=== PATIENT | female | born 1965 | race Caucasian/White ===

== ENCOUNTER → 2024-04-18 10:03 | Outpatient (REF) | payer BC, SELFPAY | LOC: HWRAD 10:03 | PROVIDERS: ATTENDING PHYSICIAN Internal Medicine | DX: R05.1 Acute cough (principal) | CPT/HCPCS: 71046 ==

== ENCOUNTER → 2024-04-27 07:49 | Outpatient (REF) | payer BC, SELFPAY | LOC: HWWDC 07:49 | PROVIDERS: ATTENDING PHYSICIAN Internal Medicine | DX: Z12.31 Encounter for screening mammogram for malignant neoplasm of breast (principal) | CPT/HCPCS: 77063; 77067 ==

== ENCOUNTER 2024-09-01 06:21 | Day surgery (SDC) | payer BC, SELFPAY | END 2024-09-01 14:28 | disposition home or self-care (01) | LOC: GI 06:21 | PROVIDERS: ATTENDING PHYSICIAN Internal Medicine Gastroenterology | DX: Z12.11 Encounter for screening for malignant neoplasm of colon (principal); K63.5 Polyp of colon; K57.30 Diverticulosis of large intestine without perforation or abscess without bleeding; K64.8 Other hemorrhoids; Z86.0100 Personal history of colon polyps, unspecified | CPT/HCPCS: 45385; 88305 ==

== ENCOUNTER 2024-12-03 08:30 | Emergency (ER) | payer BC, SELFPAY ==
[2024-12-03] VITALS (7 sets, daily range): BP systolic 157–182; BP diastolic 92–115; PULSE 59; O2SAT 97
[2024-12-03] MEDS: ANTIVERT 25 MG PO (09:31)
--- NOTE | 2024-12-03 09:41 | ED.GENMED ---
History of Present Illness
General
Chief Complaint: Breathing Problem
Source: patient
Exam Limitations: none
Time Seen by Provider: 12/03/24 09:00
Nursing documentation reviewed up to this point in time: agreed with
History of Present Illness
History of Present Illness:
59 female with past medical history of hypertension presenting to the emergency department today with concerns of room spinning dizziness occasionally over the past week sometimes feels like she has trouble catching her breath denies any specific
chest pain denies any recent trauma surgery immobilization, estrogen product usage. No leg swelling.
Past History
Past History
ED Past Medical History: None
ED Past Surgical History: None
Patient has exhibited threatening behavior?: No
Social History
Tobacco: Smoker
Alcohol: Occasional
Personal:
Living: with family
Employment: Employed
Family History
Family History: Negative Early CAD
Review of Systems
Review of Systems
Allergies reviewed?: Yes
All Other Systems: ROS reviewed and negative except as documented in HPI and ROS
Phy Exam
Physical Exam
Physical Exam:
GENERAL: Alert , in no apparent distress
EYE: pupils equal and reactive
NECK: Supple, no significant adenopathy.
ENT: o/p clr, mmm.
CARDIAC: Regular rate and rhythm .
LUNGS: Clear breath sounds bilaterally, no acute respiratory distress, no wheezes/rales/rhonchi
ABDOMEN: Soft, without focal tenderness, no r/g, no cvat
NEUROLOGICAL: Alert and oriented, no focal neuro deficits
SKIN: Warm and dry, skin intact.
MUSCULOSKELETAL: No edema, well perfused.
PSYCH: Normal and appropriate interaction.
Scores
Heart Failure Risk
Heart Failure Risk Score: Not Applicable
Course
Orders/Labs/Results
Orders:
Orders
12/03/24 08:33
EKG [Electrocardiogram (*1)] Urgent
Reason for Study: Shortness of Breath
EKG- Treatment ONCE
12/03/24 09:23
Meclizine [Antivert] 25 mg PO NOW STA
Pt Eval And Treat Urgent
Treatment: vestibular
Activity Level: Ambulate
12/03/24 09:24
CR Chest - 2 Views Urgent
Comment:
Reason For Exam: sob
12/03/24 09:33
Complete Blood Count/With Diff Urgent
Comprehensive Metabolic Panel Urgent
Magnesium Urgent
TSH Urgent
Troponin I Urgent
Abnormal Lab Results
12/03/24
09:33
Sodium 147 H mmol/L
(135-145)
Chloride 110 H mmol/L
(98-107)
Glucose 101 H mg/dl
(70-99)
ALT 83 H U/L
(0-35)
12/03/24 09:33
12/03/24 09:33
Vital Signs
Initial and Last Documented VS:
Initial Vital Signs
Temp Pulse Resp BP Pulse Ox
98.5 F 78 24 182/102 95
12/03/24 08:32 12/03/24 08:32 12/03/24 08:32 12/03/24 08:32 12/03/24 08:32
Last Documented Vital Signs
Temp Pulse Resp BP Pulse Ox
98.5 F 59 18 161/93 97
12/03/24 08:32 12/03/24 12:00 12/03/24 12:00 12/03/24 12:00 12/03/24 12:00
MDM/Problems Addressed
MDM/Problems Addressed:
59-year-old female presenting to the emergency department today with concerns of occasionally having trouble catching her breath no shortness of breath currently, shakiness and room spinning dizziness occasionally over the past week. Seems to be
worse with movement and changes in positioning. Improves when sitting still. Here blood pressure elevated otherwise vital signs are normal patient no obvious distress lungs are clear heart sounds normal. Here she is mainly concerned of room
spinning dizziness. She was seen by vestibular rehab that was able to reproduce nystagmus with vestibular testing. Symptoms improved with meclizine labs without emergent findings. Troponin negative chest x-ray normal. Blood pressure improving
while here after symptom treatment advised for close outpatient follow-up return precautions given.
*Critical Care Note
Total Time (30-74mins, 75-104mins- exclusive of procedures): Not Applicable
ED Attending Note
-
Portions of this chart may have been created with voice recognition software.� Occasional wrong word or��sound alike� substitutions may have occurred due to the inherent limitations of voice recognition software.
Discharge Plan
Departure
Patient Disposition: Home (Routine Discharge)
Date of Disposition: 12/03/24
Time of Disposition: 12:28
Patient with high blood pressure during this ER visit?: No
Condition: Good
Covid-19: Not Applicable
Discharge Problem:
Vertigo
Instructions: Vertigo ED
Prescriptions:
New
meclizine 25 mg tablet
25 mg PO BID PRN (Reason: dizziness) Qty: 10 0RF
No Action
lisinopril 20 MG tablet
20 mg PO DAILY
cholecalciferol (vitamin D3) [Vitamin D3] 2,000 UNIT capsule
2,000 unit PO DAILY
cyclobenzaprine 10 mg tablet
10 mg PO BID PRN (Reason: muscle spasm/pain) Qty: 20 0RF
Referrals:
Lindsey Sifuentes MD [Family Provider] -
Gonsalo Duvall MD [Active] - Follow up in 5-7 days
Activity Restrictions/Additional Instructions:
You came to the emergency department today with concerns of dizziness. Here you had a reassuring assessment. Please closely as an outpatient and keep an eye on your blood pressure. Please follow closely with your [facility] and ENT. Return for
any worsening, new or concerning symptoms.
Interventions
Interventions:
*Risk Screen - Suicide Last Done: 12/03/24 09:43
*General Assessment Last Done: 12/03/24 09:43
*Nursing Disposition Last Done: 12/03/24 12:35
ED- Cardiac Assessment Last Done: 12/03/24 09:43
ED- Pulmonary Assessment Last Done: 12/03/24 09:43
Discharge Date and Time
Discharge Date/Time: 12/03/24 12:35
Print Language: SYRIAN
[2024-12-03 09:55] LABS: % Basophils 0.6 % (0-2); % Eosinophils 1.5 % (0-6); % Immature Granulocytes 0.2 % (0-0.5); % Lymphocytes 33.4 % (20.5-51.1); % Monocytes 8.8 % (1.7-9.3); % Neutrophils 55.5 % (42.2-75.2); Absolute Eosinophils 0.1 10^3/uL (0-0.7); Absolute Lymphocytes 1.8 10^3/uL (1.2-3.4); Absolute Monocytes 0.5 10^3/uL (0.1-0.6); Hematocrit 41.4 % (37.0-47.0); Hemoglobin 14.3 g/dL (12.0-16.0); Mean Corp Hgb Conc. 34.5 g/dL (33.0-37.0); Mean Corpuscular Hgb 30.8 pg (27.0-31.0); Mean Corpuscular Volume 89.2 fL (81.0-99.0); Mean Platelet Volume 10.4 fL (7.4-10.4); Nucleated Red Blood Cells % 0 %; Platelet Count 224 10^3/uL (130-400); Red Blood Cell Count 4.64 10^6/uL (4.20-5.40); Red Cell Dist. Width 12.9 % (11.5-14.5); White Blood Cell Count 5.5 10^3/uL (4.8-10.8)
[2024-12-03 10:06] LABS: ALT (SGPT) 83 U/L (0-35); AST (SGOT) 34 U/L (14-36); Albumin 4.2 g/dl (3.5-5.0); Alkaline Phosphatase 79 U/L (38-126); Blood Urea Nitrogen 13 mg/dl (7-17); Calcium 9.8 mg/dl (8.4-10.2); Carbon Dioxide 22 mmol/L (22-30); Chloride 110 mmol/L (98-107); Glucose 101 mg/dl (70-99); Magnesium 1.9 mg/dl (1.6-2.3); Potassium 4.3 mmol/L (3.5-5.1); Sodium 147 mmol/L (135-145); Total Bilirubin 0.5 mg/dl (0.2-1.3); Total Protein 7.2 g/dl (6.3-8.2); eGFR > 60.00
[2024-12-03 10:16] LABS: Troponin I < 0.012 ng/ml
[2024-12-03 10:37] LABS: TSH 2.21 uIU/ml (0.47-4.68)
== END 2024-12-03 12:35 | disposition home or self-care (01) ==
LOC: EMR 08:30
PROVIDERS: Physician Assistant; EMERGENCY PHYSICIAN Student in an Organized Health Care Education/Training Program; FAMILY PHYSICIAN Internal Medicine
DX: R42 Dizziness and giddiness (principal); I10 Essential (primary) hypertension; F17.200 Nicotine dependence, unspecified, uncomplicated
CPT/HCPCS: 99285; 71046; 80053; 83735; 84443; 84484; 85025; 93005